=== PATIENT | male | born 1945 | race African-American/Black ===

== ENCOUNTER → 2016-08-07 | Outpatient (CLI) | payer MEDICARE ==
[2015-08-12 15:11] VITALS: BP 196/96
[2016-08-07 15:20] LABS: BILIRUBIN,URINE NEGATIVE (NEG); GLUCOSE,URINE NEGATIVE (NEG); NITRITE,URINE NEGATIVE (NEG); PH,URINE 7.5; PROTEIN,URINE NEGATIVE (NEG-TRACE); UROBILINOGEN,URINE 0.2 mg/dL (0.2 mg/dL)
[2016-08-07 15:35] LABS: BACTERIA,URINE 0 /HPF (0-FEW); RBC,URINE 0 /HPF (0-2); SQUAMOUS EPITHELIAL CELL,UR OCC /LPF; WBC,URINE OCC /HPF (0-4)
[2016-08-07 15:39] LABS: CALCIUM 9.2 mg/dL (8.5-10.1); GFR 88.9; POTASSIUM 3.8 mmol/L (3.5-5.1)
--- NOTE | 2016-08-07 16:49 | RAD ---
Renal ultrasound, 08/07/2016: History: Prostatic hypertrophy The right kidney measures 12.3 cm in length while the left kidney measures 11.0 cm. There is a 12 cm mass related to the upper pole of the right kidney. It is not clear whether this arises from the kidney or adjacent to the kidney. It is heterogeneous. No left renal mass is seen. The kidneys show no evidence of obstruction. The prostate gland is enlarged. It is incompletely delineated. It impresses upon the floor of the partially filled urinary bladder. IMPRESSION: 1. Right renal region mass as described above. CT scanning is suggested for further evaluation. 2. Nonspecific prostatic enlargement.
== END | disposition home or self-care (01) ==
LOC: US 14:25
PROVIDERS: ATTEND Nurse Practitioner Occupational Health
DX: Z12.5 Encounter for screening for malignant neoplasm of prostate (principal)
CPT/HCPCS: 36415; 76770; 80048; 81001; G0103

== ENCOUNTER → 2016-08-14 | Outpatient (CLI) | payer MEDICARE ==
[2015-08-12 15:11] VITALS: BP 196/96
[~2016-08-14] MED LIST: GABA300C8; HYDR-2666; IOHEXOL 300 MG/ML 100ML VIAL. IV ONE; LOSA50TA6
--- NOTE | 2016-08-14 13:34 | KCIC ---
PROCEDURE CT of the abdomen and pelvis with and without contrast with 3D urogram HISTORY Renal mass. Urinary frequency. Benign prostatic hyperplasia. COMPARISON TECHNIQUE Imaging performed before, during and after intravenous contrast administration. 3D urogram also performed. Exposure: One or more of the following individualized dose reduction techniques were utilized for this exam: 1. Automated exposure control. 2. Adjustment of the mA and/or kV according to patient size. 3. Use of iterative reconstruction technique. FINDINGS Lung bases are clear. There are coronary artery calcifications. There is a very large mass at the upper pole the right kidney. This exerts mass effect upon the posterior liver. This most likely is originating from the upper pole of the right kidney. The mass measures 12.6 cm cephalocaudal by 13.6 cm AP by 11.4 cm wide. This demonstrates mildly heterogeneous internal density, greater than water density. The collecting system of the upper pole of the right kidney is depressed downward due to mass effect from this mass. The border of the upper tumor is difficult to distinguish from the border of the inferior posterior right lobe of the liver and it is not possible to exclude some direct involvement of the liver. There is a small exophytic lesion arising from the lower pole of the left kidney measuring 10 millimeter diameter. This measures greater than water density although accuracy is questionable due to a small size. This could represent a complex exophytic cyst. There is symmetric nephrogram bilaterally and symmetric excretion of contrast into the collecting systems bilaterally. There are several small low-density lesions within the liver, largest measures 17 millimeters diameter, most compatible with cysts. Spleen unremarkable Pancreas unremarkable No evidence of adrenal mass. No calcified gallstone. The aorta is not aneurysmal. Limited GI tract examination without oral contrast. No evidence of bowel obstruction. Moderate retained stool in the colon. The appendix appears unremarkable. The urinary bladder is mildly distended. There is a [id number]-[id number] level in the urinary bladder, suggesting complex contents such as hemorrhage or bacterial infection. It is difficult to exclude wall thickening as the wall is poorly defined. CT There is a subcutaneous nodule in the anterior right lower abdominal wall measuring 16 millimeters, measures water density, likely a small subcutaneous cyst. No bulky lymph node enlargement is identified. There is osteoarthritis identified at both hip joints. There is multilevel thoracolumbar spondylosis with posterior spinal osteophytes and disc protrusion as well as facet joint hypertrophy. Findings result in moderate to severe multilevel spinal and neural foraminal stenosis. The prostate gland is enlarged. IMPRESSION 1. Large mass in the right upper quadrant, presumably originates from the upper pole the right kidney. Malignant etiology such as renal cell carcinoma is the most likely diagnosis. 2. Mild urinary bladder distention with complex content. This is nonspecific but considerations could include bacterial cystitis or urinary bladder hemorrhage. The urinary bladder wall is difficult to define. 3. Small exophytic lesion at the lower pole the left kidney could represent a complex or hemorrhagic cyst. This was not visualized on the ultrasound exam. Therefore, follow-up with CT scan could be of benefit. 4. Thoracolumbar spondylosis with moderate to severe spinal stenosis. 5. Prostatomegaly. Electronically signed by: Greg Wong MD (Aug 14, 2016 13:32:07)
== END | disposition home or self-care (01) ==
LOC: KCIC CT 11:11
PROVIDERS: ATTEND Nurse Practitioner Occupational Health
DX: N28.89 Other specified disorders of kidney and ureter (principal); R19.01 Right upper quadrant abdominal swelling, mass and lump; N32.89 Other specified disorders of bladder; M47.895 Other spondylosis, thoracolumbar region; M48.05 Spinal stenosis, thoracolumbar region; N40.0 Benign prostatic hyperplasia without lower urinary tract symptoms
CPT/HCPCS: 74178; Q9967

== ENCOUNTER → 2016-09-21 | Outpatient (CLI) | payer MEDICARE ==
[2015-08-12 15:11] VITALS: BP 196/96
[~2016-09-21] MED LIST changes: -IOHEXOL 300 MG/ML 100ML VIAL. IV ONE
[2016-09-21 14:47] LABS: CALCIUM 8.9 mg/dL (8.5-10.1); GFR 39.9; POTASSIUM 3.8 mmol/L (3.5-5.1)
== END | disposition home or self-care (01) ==
LOC: LAB 14:06
PROVIDERS: ATTEND Nurse Practitioner Occupational Health
DX: Z12.5 Encounter for screening for malignant neoplasm of prostate (principal); N40.0 Benign prostatic hyperplasia without lower urinary tract symptoms
CPT/HCPCS: 36415; 80048; G0103

== ENCOUNTER → 2016-10-08 | Outpatient (CLI) | payer MEDICARE ==
[2015-08-12 15:11] VITALS: BP 196/96
== END | disposition home or self-care (01) ==
LOC: LAB 13:56
PROVIDERS: ATTEND Nurse Practitioner Occupational Health
DX: Z12.5 Encounter for screening for malignant neoplasm of prostate (principal); N40.0 Benign prostatic hyperplasia without lower urinary tract symptoms
CPT/HCPCS: 36415; G0103

== ENCOUNTER 2016-11-23 13:27 | Emergency (ER) | payer MEDICARE ==
[~2016-11-23] VITALS: Ht 170.2 cm; Wt 98.9 kg
[~2016-11-23 13:27] MED LIST changes: -HYDR-2666; +HYDR-2758
[2016-11-23] MEDS ORDERED: ASPIRIN ENTERIC COATED 325 MG TABLET.DR. PO ONE (14:00)
[2016-11-23] MEDS ORDERED: diazePAM 5 MG TABLET PO ONE (14:00)
[2016-11-23 14:05] LABS: BASO % 1 % (0-3); EOS % 3 % (0-3); HEMATOCRIT 35.4 % (39.0-53.0); HEMOGLOBIN 11.7 g/dL (13.0-17.5); LYMPH # 1.5 x10^3/uL (1.0-4.8); LYMPH % 44 % (24-48); MEAN CORPUSCULAR HEMOGLOBIN 30 pg (25-35); MEAN CORPUSCULAR HGB CONC 33 g/dL (31-37); MEAN CORPUSCULAR VOLUME 91 fL (79-100); MONO % 9 % (0-9); NEUT % 44 % (31-73); PLATELET COUNT 100 x10^3/uL (140-400); RED BLOOD COUNT 3.88 x10^6/uL (4.30-5.70); RED CELL DISTRIBUTION WIDTH 16.7 % (11.5-14.5); WHITE BLOOD COUNT 3.4 x10^3/uL (4.0-11.0)
[2016-11-23 14:17] LABS: INR 1.2 (0.8-1.1); PROTHROMBIN TIME PATIENT 14.2 SEC (11.7-14.0)
[2016-11-23 14:22] LABS: CALCIUM 9.1 mg/dL (8.5-10.1); GFR 39.9; POTASSIUM 4.2 mmol/L (3.5-5.1)
--- NOTE | 2016-11-23 14:24 | PHYS DOC ---
Past Medical History Past Medical History: CAD, Cancer, Hypertension, Pneumonia, Other Additional Past Medical Histor: urinary incontinence Past Surgical History: Other Additional Past Surgical Histo: cardiac stents, Right nephrectomy Alcohol Use: Occasionally Drug Use: None Adult General Chief Complaint Chief Complaint: UPPER EXTREMITY PAIN HPI HPI Patient is a 70 year old male presenting to the emergency department for evaluation of left forearm and upper arm pain that has been going on for the past several days. Patient is very difficult to get information from as he is quite vague and will not answer questions directly. From what I can get from him it sounds as if it is achy pain that is constant and made better by moving his arm. He says that he does not have any heart history that he has had multiple catheterizations. He says that he has some neck pain but he denies any chest pain shortness of breath diaphoresis nausea vomiting. He says that he went to an urgent care before he came here and they sent him here for further evaluation. Review of Systems Review of Systems Constitutional: Denies fever or chills [] Eyes: Denies change in visual acuity, redness, or eye pain [] HENT: Denies nasal congestion or sore throat [] Respiratory: Denies cough or shortness of breath [] Cardiovascular: No additional information not addressed in HPI [] GI: Denies abdominal pain, nausea, vomiting, bloody stools or diarrhea [] : Denies dysuria or hematuria [] Musculoskeletal: Denies back pain or joint pain [] Integument: Denies rash or skin lesions [] Neurologic: Denies headache, focal weakness or sensory changes [] Current Medications Current Medications Current Medications Medications (Trade) Dose Ordered Sig/[facility] Start Time Stop Time Status Last Admin Dose Admin Aspirin (Ecotrin) 325 mg 1X ONCE 11/23/16 14:00 11/23/16 14:01 DC 11/23/16 14:40 325 MG Diazepam (Valium) 5 mg 1X ONCE 11/23/16 14:00 11/23/16 14:01 DC 11/23/16 14:40 5 MG Allergies Allergies Allergies Coded Allergies Type Severity Reaction Last Updated Verified No Known Drug Allergies 04/19/15 No Physical Exam Physical Exam Constitutional: Well developed, well nourished, no acute distress, non-toxic appearance. [] HENT: Normocephalic, atraumatic, bilateral external ears normal, oropharynx moist, no oral exudates, nose normal. [] Eyes: PERRLA, EOMI, conjunctiva normal, no discharge. [] Neck: Normal range of motion, no tenderness, supple, no stridor. [] Cardiovascular:Heart rate regular rhythm, no murmur [] Lungs & Thorax: Bilateral breath sounds clear to auscultation [] Abdomen: Bowel sounds normal, soft, no tenderness, no masses, no pulsatile masses. [] Skin: Warm, dry, no erythema, no rash. [] Back: No tenderness, no CVA tenderness. [] Extremities: No tenderness, no cyanosis, no clubbing, ROM intact, no edema. [] Neurologic: Alert and oriented X 3, normal motor function, normal sensory function, no focal deficits noted. [] Psychologic: Affect normal, judgement normal, mood normal. [] Current Patient Data Vital Signs Vital Signs Date Time Temp Pulse Resp B/P (MAP) Pulse Ox O2 Delivery O2 Flow Rate FiO2 11/23/16 14:37 69 16 163/86 (111) 96 Room Air 11/23/16 13:40 98.6 98.6 Lab Values Laboratory Tests Test 11/23/16 13:55 White Blood Count 3.4 x10^3/uL (4.0-11.0) L Red Blood Count 3.88 x10^6/uL (4.30-5.70) L Hemoglobin 11.7 g/dL (13.0-17.5) L Hematocrit 35.4 % (39.0-53.0) L Mean Corpuscular Volume 91 fL (79-100) Mean Corpuscular Hemoglobin 30 pg (25-35) Mean Corpuscular Hemoglobin Concent 33 g/dL (31-37) Red Cell Distribution Width 16.7 % (11.5-14.5) H Platelet Count 100 x10^3/uL (140-400) L Neutrophils (%) (Auto) 44 % (31-73) Lymphocytes (%) (Auto) 44 % (24-48) Monocytes (%) (Auto) 9 % (0-9) Eosinophils (%) (Auto) 3 % (0-3) Basophils (%) (Auto) 1 % (0-3) Neutrophils # (Auto) 1.5 x10^3uL (1.8-7.7) L Lymphocytes # (Auto) 1.5 x10^3/uL (1.0-4.8) Monocytes # (Auto) 0.3 x10^3/uL (0.0-1.1) Eosinophils # (Auto) 0.1 x10^3/uL (0.0-0.7) Basophils # (Auto) 0.0 x10^3/uL (0.0-0.2) Prothrombin Time 14.2 SEC (11.7-14.0) H Prothrombin Time INR 1.2 (0.8-1.1) H PTT 33 SEC (24-38) Sodium Level 144 mmol/L (136-145) Potassium Level 4.2 mmol/L (3.5-5.1) Chloride Level 108 mmol/L (98-107) H Carbon Dioxide Level 28 mmol/L (21-32) Anion Gap 8 (6-14) Blood Urea Nitrogen 36 mg/dL (8-26) H Creatinine 2.0 mg/dL (0.7-1.3) H Estimated GFR (Cockcroft-Gault) 39.9 BUN/Creatinine Ratio 18 (6-20) Glucose Level 93 mg/dL (70-99) Calcium Level 9.1 mg/dL (8.5-10.1) Magnesium Level 2.1 mg/dL (1.8-2.4) Total Bilirubin 0.4 mg/dL (0.2-1.0) Aspartate Amino Transferase (AST) 27 U/L (15-37) Alanine Aminotransferase (ALT) 51 U/L (16-63) Alkaline Phosphatase 117 U/L (46-116) H Troponin I Quantitative < 0.017 ng/mL (0.000-0.055) XM-Fmv-[id number]-Type Natriuretic Peptide 35 pg/mL (0-124) Total Protein 7.2 g/dL (6.4-8.2) Albumin 3.5 g/dL (3.4-5.0) Albumin/Globulin Ratio 0.9 (1.0-1.7) L Lipase 150 U/L (73-393) Laboratory Tests 11/23/16 13:55 Laboratory Tests 11/23/16 13:55 EKG EKG Sinus rhythm at 58 beats per minutes with leftward axis no obvious ST elevation or depression and normal T waves. Radiology/Procedures Radiology/Procedures Indication chest pain. Left arm pain. A single view of the chest was obtained and is compared to an examination 08/12/2015. Heart size is slightly enlarged but unchanged. There is no congestive heart failure. There is no focal infiltrate. There is no pleural fluid or pneumothorax. The visualized bony structures appear grossly intact. IMPRESSION: No acute or focal process seen in the chest DICTATED and SIGNED BY: NICOLE RAMSEY MD DATE: 11/23/16 1423 Course & Med Decision Making Course & Med Decision Making I strongly recommended admission for this patient given his vague symptoms and his history. Refused stating the Valium took his pain away and that he wants to go home and follow with his automotive customer experience advisor as an outpatient. In the reasons why I wanted him to stay in the hospital including that he could or have disability from a cardiac event. Patient verbalized understanding and accepted the responsibility of and disability by leaving against my advice. Patient discharged in stable condition and walked out of the emergency department under his own power. Dragon Disclaimer Dragon Disclaimer This electronic medical record was generated, in whole or in part, using a voice recognition dictation system. Departure Departure Impression: Primary Impression: Arm pain, left Additional Impression: Renal insufficiency Disposition: HOME, SELF-CARE Condition: GOOD Referrals: NO PCP (PCP) Patient Instructions: Chest Pain (Nonspecific) Additional Instructions: Take a full dose aspirin daily splint 2 doses and take the Valium for pain and follow with her automotive customer experience advisor and come back to the ER sooner with any worsening pain shortness of breath or other general concerns. Scripts Diazepam (VALIUM) 5 Mg Tablet 5 MG PO TID Y for MUSCLE SPASMS, #10 TAB Prov: SYLVIA CHANG DO 11/23/16 Problem Qualifiers SYLVIA CHANG DO Nov 23, 2016 14:24
[2016-11-23 14:28] LABS: ALBUMIN 3.5 g/dL (3.4-5.0); ALBUMIN/GLOBULIN RATIO 0.9 (1.0-1.7); MAGNESIUM 2.1 mg/dL (1.8-2.4); TOTAL BILIRUBIN 0.4 mg/dL (0.2-1.0); TOTAL PROTEIN 7.2 g/dL (6.4-8.2)
--- NOTE | 2016-11-23 14:28 | RAD ---
Indication chest pain. Left arm pain. A single view of the chest was obtained and is compared to an examination 08/12/2015. Heart size is slightly enlarged but unchanged. There is no congestive heart failure. There is no focal infiltrate. There is no pleural fluid or pneumothorax. The visualized bony structures appear grossly intact. IMPRESSION: No acute or focal process seen in the chest
[2016-11-23 14:37] VITALS: BP 163/86
--- NOTE | 2016-11-23 14:43 | EKG ---
[facility] [address] [place] [address] Test Date: 2016-11-23 Test Time: 13:44:47 Pat Name: ELNA RILEY Department: Room: Gender: M Blind Cleaner: : 1945 Requested By: SYLVIA CHANG Order Number: [id number] Reading MD: Measurements Intervals [place] Rate: 58 P: 38 [place]: 250 QRS: -36 QRSD: 102 T: 18 QT: 428 QTc: 424 Interpretive Statements SINUS RHYTHM PROLONGED [place] INTERVAL ABNORMAL LEFT AXIS DEVIATION LEFT ANTERIOR FASCICULAR BLOCK QRS(T) CONTOUR ABNORMALITY CANNOT RULE OUT ANTEROSEPTAL MYOCARDIAL DAMAGE CANNOT RULE OUT INFERIOR MYOCARDIAL DAMAGE RI6.01 Unconfirmed report Compared to ECG 10/03/2009 15:48:05 First degree AV block now present Left-axis deviation now present
[2016-11-23] MEDS ORDERED: DIAZ5TAB PO (14:59)
== END 2016-11-23 15:21 | disposition home or self-care (01) ==
LOC: ER 13:27
DX: M79.632 Pain in left forearm (principal); N28.9 Disorder of kidney and ureter, unspecified; M54.2 Cervicalgia; I25.10 Atherosclerotic heart disease of native coronary artery without angina pectoris; I10 Essential (primary) hypertension; Z87.01 Personal history of pneumonia (recurrent); Z90.5 Acquired absence of kidney; Z95.5 Presence of coronary angioplasty implant and graft
CPT/HCPCS: 36415; 71010; 80053; 83690; 83735; 83880; 84484; 85027; 85610; 85730; 93005; 99285-25